=== PATIENT | male | born 1955 | race Two or more races ===

== ENCOUNTER 2024-08-16 15:18 | Inpatient (IN) | payer OTHER ==
[~2024-08-16] VITALS: Ht 182.9 cm; Wt 93.0 kg
[2024-08-16] MEDS ORDERED: NEURONTIN300 MG PO (16:52)
[2024-08-16] MEDS ORDERED: ELIQUIS5 M1 PO (16:52)
[2024-08-16] MEDS ORDERED: HUMALOG100 UNIT/2 (16:52)
[2024-08-16] MEDS ORDERED: LIPITOR40 M1 (16:53)
[2024-08-16] MEDS ORDERED: LOMOTIL (16:53)
[2024-08-16] MEDS ORDERED: NIFEDIPINE20 MG (16:53)
[2024-08-16] MEDS ORDERED: TOPROL XL50 M1 PO (16:54)
[2024-08-16] MEDS ORDERED: IBERSARTAN (16:54)
--- NOTE | 2024-08-16 17:03 | NUR ---
PACIENTE ALERTA Y ORIENTADO X3, QUIEN REFIERE VNEIR POR DOLOR ABDOMINAL Y ESPALDA BAJA. REFIERE QUE DESDE HACE DOS SEMANAS ESTAR [place] POR EL AREA RECTAL Y HERNANDEZ COLOSTOMIA ESTAR INFLAMADA. HERNANDEZ CIRUJANA UDAY STEPHENS, Y ONCOLOGO ES MELCHOR BLAKE.
[2024-08-16] MEDS ORDERED: FAMOTIDINE/PF 20 MG/2 ML VIAL IV ONE (17:30)
[2024-08-16] MEDS ORDERED: 0.9 % SODIUM CHLORIDE 1,000 ML IV ONE (17:30)
[2024-08-16] MEDS ORDERED: ONDANSETRON HCL 2 MG/ML VIAL IV ONE (17:45)
[2024-08-16] MEDS ORDERED: BARIUM SULFATE 450 ML ORAL.SUSP PO ONE (17:45)
[2024-08-16 18:43] LABS: BASO % 0.6 % (0.1-1.2); EOS # 0.02 (0.04-0.54); EOS % 0.2 % (0.7-7.0); LYMPH # 0.92 (1.18-3.74); LYMPH % 9.7 % (19.3-53.1); MEAN PLATELET VOLUME 9.80 fl (9.4-12.4); MONO # 0.71 (0.24-0.82); MONO % 7.5 % (4.7-12.5); NEUT # 7.69 (1.56-6.13); NEUT % 81.3 % (34.0-71.1); RED CELL DISTRIBUTION WIDTH 15.8 % (11.6-14.4)
[2024-08-16 18:57] LABS: INR 1.03
[2024-08-16 19:01] LABS: ALT/SGPT 30.0 U/L (12-78); AST/SGOT 17.0 U/L (15-37); BILIRUBIN TOTAL 0.47 mg/dL (0.3-1.2); BUN CREA RATIO 18.0 (7.0-25.0); CREATININE SERUM 1.79 mg/dL (0.70-1.30); GFR 37.84; GLOBULINA 4.9 G/DL (2.4-3.5); OSMOLALITY SERUM 294.0 MOSM/KG (275-295); URINE APPEARANCE Clear; URINE BILIRRUBIN Negative (NEGATIVE); URINE BLOOD Negative; URINE COLOR Yellow; URINE KETONE Negative (NEGATIVE); URINE LEUKOCYTE Negative; URINE NITRATE Negative; URINE PROTEIN 30 (NEGATIVE); URINE UROBILINOGEN 0.2 E.U./dl
[2024-08-16 19:05] LABS: URINE BACTERIA 34.7 uL (0.0-1933); URINE CAST 6.45 uL (0.0-1.40); URINE EPITHELIAL CELLS 11.9 uL (0.0-38.8); URINE WBC 2.4 uL (0.0-23.2)
[2024-08-16 19:09] LABS: GLUCOSE FASTING 267.0 mg/dL (65-100)
[2024-08-16 19:25] LABS: URINE GLUCOSE >=1000 MG/DL (NEGATIVE); URINE RBC 0.2 uL (0.0-20.8)
[2024-08-17] MEDS ORDERED: PIPERACILLIN/TAZOBACTAM SODIUM 2.25 GM in DEXTROSE 5 % IN WATER 50 ML IV SCH (00:13)
[2024-08-17] MEDS ORDERED: 0.9 % SODIUM CHLORIDE 1,000 ML IV SCH (00:15)
[2024-08-17] MEDS ORDERED: INSULIN LISPRO 1,000 UNIT/10 ML UNITS SUBCUTANEO PRN (00:15)
[2024-08-17] MEDS ORDERED: DEXTROSE 50 % IN WATER 0.5 G/ML DISP.SYRIN IV PRN (00:15)
[2024-08-17] MEDS ORDERED: MORPHINE SULFATE 4 MG/ML CARTRIDGE IV PRN (00:15)
[2024-08-17] MEDS ORDERED: ACETAMINOPHEN 500 MG GEL..CAP PO PRN (00:15)
[2024-08-17 04:32] VITALS: BP 110/70
[2024-08-17 08:10] VITALS: BP 144/67; O2SAT 96
[2024-08-17] MEDS ORDERED: METOPROLOL SUCCINATE 50 MG TAB.SR.24H PO SCH (09:00)
[2024-08-17] MEDS ORDERED: APIXABAN 5 MG TABLET PO SCH (09:00)
[2024-08-17] MEDS ORDERED: NIFEDIPINE 60 MG TAB.SA.OSM PO SCH (09:00)
[2024-08-17] MEDS ORDERED: MEROPENEM 500 MG/VIAL VIAL IV SCH (10:00)
[2024-08-17 12:04] LABS: BUN CREA RATIO 19.0 (7.0-25.0); CREATININE SERUM 2.0 mg/dL (0.70-1.30); GFR 33.29; OSMOLALITY SERUM 298.0 MOSM/KG (275-295)
[2024-08-17 12:05] LABS: GLUCOSE FASTING 309.0 mg/dL (65-100)
[2024-08-17] MEDS ORDERED: DEXTROSE 50 % IN WATER 0.5 G/ML VIAL IV PRN (14:30)
[2024-08-17] MEDS ORDERED: BUPIVACAINE HCL/PF 0.25% 30ML VIAL InF ONE (17:45)
[2024-08-17] MEDS ORDERED: LIDOCAINE HCL 1% 20 ML VIAL IJ ONE (17:45)
[2024-08-17] MEDS ORDERED: ONDANSETRON HCL 2 MG/ML VIAL IV PRN (18:15)
[2024-08-17 20:20] LABS: BUN CREA RATIO 22.0 (7.0-25.0); CREATININE SERUM 1.86 mg/dL (0.70-1.30); GFR 36.2; OSMOLALITY SERUM 303.0 MOSM/KG (275-295)
[2024-08-17 20:34] LABS: GLUCOSE FASTING 281.0 mg/dL (65-100)
[2024-08-17] MEDS ORDERED: FAMOTIDINE/PF 20 MG/2 ML VIAL IV SCH (21:00)
[2024-08-17] MEDS ORDERED: ENOXAPARIN SODIUM 100 MG/ML SYRINGE SUBCUTANEO SCH (21:00)
[2024-08-18] MEDS ORDERED: MORPHINE SULFATE 4 MG/ML VIAL IV ONE (04:00)
[2024-08-18] MEDS ORDERED: ENALAPRILAT DIHYDRATE 1.25 MG/ML VIAL IV ONE (04:30)
[2024-08-18 06:43] LABS: BASO % 0.8 % (0.1-1.2); EOS # 0.00 (0.04-0.54); EOS % 0.0 % (0.7-7.0); LYMPH # 0.40 (1.18-3.74); LYMPH % 15.2 % (19.3-53.1); MEAN PLATELET VOLUME 10.60 fl (9.4-12.4); MONO # 0.49 (0.24-0.82); NEUT # 1.71 (1.56-6.13); NEUT % 65.0 % (34.0-71.1); RED CELL DISTRIBUTION WIDTH 15.8 % (11.6-14.4)
[2024-08-18 06:49] LABS: MONO % 18.6 % (4.7-12.5)
[2024-08-18] MEDS ORDERED: ENALAPRILAT DIHYDRATE 1.25 MG/ML VIAL IV STA (06:56)
[2024-08-18] MEDS ORDERED: ENALAPRILAT DIHYDRATE 1.25 MG/ML VIAL IV PRN (07:00)
[2024-08-18 07:07] LABS: ALT/SGPT 24.0 U/L (12-78); AST/SGOT 15.0 U/L (15-37); BILIRUBIN TOTAL 0.51 mg/dL (0.3-1.2); BUN CREA RATIO 20.0 (7.0-25.0); CREATININE SERUM 1.66 mg/dL (0.70-1.30); GFR 41.28; GLOBULINA 3.8 G/DL (2.4-3.5); OSMOLALITY SERUM 304.0 MOSM/KG (275-295)
[2024-08-18 07:10] LABS: GLUCOSE FASTING 299.0 mg/dL (65-100)
[2024-08-18 14:23] VITALS: BP 98/62; O2SAT 88
[2024-08-18 15:00] VITALS: O2SAT 97
[2024-08-18] MEDS ORDERED: ENOXAPARIN SODIUM 40 MG/0.4 ML SYRINGE SUBCUTANEO SCH (17:00)
[2024-08-18 18:44] VITALS: BP 110/70; O2SAT 96
[2024-08-19 01:00] VITALS: BP 145/82
[2024-08-19 09:22] VITALS: BP 162/98; O2SAT 93
[2024-08-19 18:15] VITALS: BP 167/95; O2SAT 100
[2024-08-19] MEDS ORDERED: ENOXAPARIN SODIUM 100 MG/ML SYRINGE SUBCUTANEO SCH (21:00)
[2024-08-20 01:29] VITALS: BP 146/84
[2024-08-20 08:00] VITALS: BP 198/82; O2SAT 93
[2024-08-20] MEDS ORDERED: MORPHINE SULFATE 4 MG/ML CARTRIDGE IV PRN (16:30)
[2024-08-20 16:43] VITALS: BP 180/108; O2SAT 93
[2024-08-20] MEDS ORDERED: IRBESARTAN 300 MG TABLET PO SCH (17:00)
[2024-08-21 03:26] VITALS: BP 162/108; O2SAT 91
[2024-08-21 08:54] LABS: ALT/SGPT 17.0 U/L (12-78); AST/SGOT 14.0 U/L (15-37); BILIRUBIN TOTAL 0.49 mg/dL (0.3-1.2); BUN CREA RATIO 20.0 (7.0-25.0); CREATININE SERUM 1.08 mg/dL (0.70-1.30); GFR 67.79; GLOBULINA 4.0 G/DL (2.4-3.5); GLUCOSE FASTING 291.0 mg/dL (65-100); OSMOLALITY SERUM 297.0 MOSM/KG (275-295)
[2024-08-21 10:15] VITALS: BP 169/100
[2024-08-21 12:13] LABS: BASO % 0.6 % (0.1-1.2); EOS # 0.01 (0.04-0.54); EOS % 0.2 % (0.7-7.0); LYMPH # 0.92 (1.18-3.74); LYMPH % 17.1 % (19.3-53.1); MEAN PLATELET VOLUME 11.50 fl (9.4-12.4); MONO # 1.01 (0.24-0.82); NEUT # 3.33 (1.56-6.13); NEUT % 61.8 % (34.0-71.1); RED CELL DISTRIBUTION WIDTH 15.8 % (11.6-14.4)
[2024-08-21 12:17] LABS: MONO % 18.8 % (4.7-12.5)
[2024-08-21] MEDS ORDERED: NIFEDIPINE 60 MG TAB.SA.OSM PO SCH (17:00)
[2024-08-21] MEDS ORDERED: TAMSULOSIN HCL 0.4 MG CAP PO STA (17:42)
[2024-08-21 18:55] VITALS: BP 162/89
[2024-08-21 20:34] VITALS: BP 144/90
[2024-08-22 02:50] VITALS: BP 128/86; O2SAT 90
[2024-08-22 08:58] VITALS: BP 128/73
[2024-08-22] MEDS ORDERED: TAMSULOSIN HCL 0.4 MG CAP PO SCH (09:00)
[2024-08-22 17:37] VITALS: BP 150/70
[2024-08-22] MEDS ORDERED: ENOXAPARIN SODIUM 100 MG/ML SYRINGE SUBCUTANEO SCH (21:00)
[2024-08-23 02:27] VITALS: BP 118/79; O2SAT 90
[2024-08-23 06:34] LABS: BASO % 0.8 % (0.1-1.2); EOS # 0.03 (0.04-0.54); EOS % 0.6 % (0.7-7.0); LYMPH # 1.11 (1.18-3.74); LYMPH % 20.9 % (19.3-53.1); MEAN PLATELET VOLUME 11.20 fl (9.4-12.4); MONO # 0.92 (0.24-0.82); NEUT # 2.99 (1.56-6.13); NEUT % 56.3 % (34.0-71.1); RED CELL DISTRIBUTION WIDTH 15.9 % (11.6-14.4)
[2024-08-23 07:35] LABS: BAND MAN 3.0 %; LYMPHOCYTE MAN 35.0 %; MONO % 17.4 % (4.7-12.5); MONOCYTE MAN 7.0 %; NEUTROPHILS MAN 50.0 %
[2024-08-23 08:30] VITALS: BP 110/74; O2SAT 98
[2024-08-23] MEDS ORDERED: DIATRIZOATE MEGLUMINE, SODIUM 30 ML BOTTLE PO STA (12:33)
[2024-08-23] MEDS ORDERED: ONDANSETRON HCL 2 MG/ML VIAL IV PRN (14:30)
[2024-08-23] MEDS ORDERED: FAMOTIDINE/PF 20 MG/2 ML VIAL IV PUSH SCH (14:45)
[2024-08-23 17:55] VITALS: BP 158/94
[2024-08-23] MEDS ORDERED: ENOXAPARIN SODIUM 60 MG/0.6 ML SYRINGE SUBCUTANEO SCH (21:00)
[2024-08-24 02:05] VITALS: BP 121/60; O2SAT 96
[2024-08-24] MEDS ORDERED: PROMETHAZINE HCL 25 MG/ML AMPUL IV PRN (03:15)
[2024-08-24] MEDS ORDERED: FAMOTIDINE/PF 20 MG/2 ML VIAL IV PUSH SCH (05:00)
[2024-08-24 07:48] VITALS: BP 123/71
[2024-08-24] MEDS ORDERED: DEXTROSE 5 %-0.45 % SOD CHLORD 1,000 ML IV SCH (11:15)
[2024-08-24 15:30] LABS: BUN CREA RATIO 24.0 (7.0-25.0); CHOL HDL RATIO 4.8 (0-5.0); CREATININE SERUM 1.7 mg/dL (0.70-1.30); GFR 40.16; HDL 45.0 mg/dl (40-60); LDL 130.0 mg/dl (0-130); OSMOLALITY SERUM 299.0 MOSM/KG (275-295); VLDL 38.0 (0-39)
[2024-08-24 15:45] LABS: GLUCOSE FASTING 211.0 mg/dL (65-100)
[2024-08-24] MEDS ORDERED: AA 4.25%/CAL/LYTES/DEXT 5% 1,000 ML PERIFERAL SCH (17:00)
[2024-08-24 19:02] VITALS: BP 117/76; O2SAT 97
[2024-08-24 19:04] VITALS: BP 121/78; O2SAT 98
[2024-08-25 01:27] VITALS: BP 118/71; O2SAT 95
[2024-08-25 06:58] LABS: BUN CREA RATIO 27.0 (7.0-25.0); CREATININE SERUM 1.24 mg/dL (0.70-1.30); GFR 57.8; GLUCOSE FASTING 233.0 mg/dL (65-100); OSMOLALITY SERUM 300.0 MOSM/KG (275-295)
[2024-08-25 09:31] VITALS: BP 132/86
[2024-08-25 15:12] LABS: BASO % 0.7 % (0.1-1.2); EOS # 0.03 (0.04-0.54); EOS % 0.4 % (0.7-7.0); LYMPH # 1.04 (1.18-3.74); LYMPH % 14.4 % (19.3-53.1); MEAN PLATELET VOLUME 10.40 fl (9.4-12.4); MONO # 0.78 (0.24-0.82); MONO % 10.8 % (4.7-12.5); NEUT # 5.00 (1.56-6.13); NEUT % 69.4 % (34.0-71.1); RED CELL DISTRIBUTION WIDTH 16.4 % (11.6-14.4)
[2024-08-25 17:50] VITALS: BP 138/88; O2SAT 97
[2024-08-26 02:12] VITALS: BP 134/87; O2SAT 96
[2024-08-26 10:32] VITALS: BP 140/97; O2SAT 99
[2024-08-26] MEDS ORDERED: ENOXAPARIN SODIUM 80 MG/0.8 ML SYRINGE SUBCUTANEO SCH (11:48)
[2024-08-26 17:02] VITALS: BP 132/87; O2SAT 99
[2024-08-27 02:05] VITALS: BP 134/87; O2SAT 96
[2024-08-27 09:05] VITALS: BP 122/64; O2SAT 98
[2024-08-27 14:22] LABS: BASO % 0.8 % (0.1-1.2); EOS # 0.07 (0.04-0.54); EOS % 0.8 % (0.7-7.0); LYMPH # 1.11 (1.18-3.74); LYMPH % 12.8 % (19.3-53.1); MEAN PLATELET VOLUME 10.60 fl (9.4-12.4); MONO # 0.55 (0.24-0.82); MONO % 6.4 % (4.7-12.5); NEUT # 6.54 (1.56-6.13); NEUT % 75.5 % (34.0-71.1); RED CELL DISTRIBUTION WIDTH 16.0 % (11.6-14.4)
[2024-08-27 15:09] LABS: BAND MAN 1.0 %; EOSINOPHIL MAN 1.0 %; LYMPHOCYTE MAN 14.0 %; METAMYELOCYTE 2.0 %; MONOCYTE MAN 7.0 %; NEUTROPHILS MAN 75.0 %
[2024-08-27 17:32] VITALS: BP 157/100; O2SAT 98
[2024-08-28 02:35] VITALS: BP 125/77; O2SAT 95
[2024-08-28] MEDS ORDERED: TAMS0.4C PO (09:12)
[2024-08-28] MEDS ORDERED: AVAPRO300 MG PO (09:13)
[2024-08-28] MEDS ORDERED: TOPROL XL50 M1 PO (09:13)
[2024-08-28 09:42] LABS: ALT/SGPT 15.0 U/L (12-78); AST/SGOT 18.0 U/L (15-37); BILIRUBIN TOTAL 0.38 mg/dL (0.3-1.2); BUN CREA RATIO 20.0 (7.0-25.0); CREATININE SERUM 0.84 mg/dL (0.70-1.30); GFR 90.6; GLOBULINA 3.7 G/DL (2.4-3.5); GLUCOSE FASTING 146.0 mg/dL (65-100); OSMOLALITY SERUM 285.0 MOSM/KG (275-295)
[2024-08-28 09:44] VITALS: BP 128/78
[2024-08-28 10:00] LABS: BASO % 0.5 % (0.1-1.2); EOS # 0.15 (0.04-0.54); EOS % 1.6 % (0.7-7.0); LYMPH # 1.39 (1.18-3.74); LYMPH % 14.6 % (19.3-53.1); MEAN PLATELET VOLUME 10.90 fl (9.4-12.4); MONO # 0.80 (0.24-0.82); MONO % 8.4 % (4.7-12.5); NEUT # 6.73 (1.56-6.13); NEUT % 71.0 % (34.0-71.1); RED CELL DISTRIBUTION WIDTH 16.0 % (11.6-14.4)
== END 2024-08-28 12:10 | disposition home or self-care (01) | DRG 335 ==
LOC: ER 15:18 → O/R 08-17 00:15 → SEC-K 08-17 00:15 → SURH 08-17 10:29 → SEC-K 08-17 12:31 → O/R 08-17 14:11 → MEDJ 08-18 10:06
PROVIDERS: Colon & Rectal Surgery; Emergency Medicine Pediatric Emergency Medicine; General Practice; Internal Medicine; ADMIT Internal Medicine; ATTEND Internal Medicine
PROC: BW21ZZZ Computerized Tomography (CT Scan) of Abdomen and Pelvis (ICD-10-PCS; 2024-08-16)
PROC: 0WQF4ZZ Repair Abdominal Wall, Percutaneous Endoscopic Approach (ICD-10-PCS; 2024-08-17)
PROC: 0DN84ZZ Release Small Intestine, Percutaneous Endoscopic Approach (ICD-10-PCS; principal; 2024-08-17 19:00)
PROC: B54DZZZ Ultrasonography of Bilateral Lower Extremity Veins (ICD-10-PCS; 2024-08-22)
PROC: BW21ZZZ Computerized Tomography (CT Scan) of Abdomen and Pelvis (ICD-10-PCS; 2024-08-23)
PROC: BW21ZZZ Computerized Tomography (CT Scan) of Abdomen and Pelvis (ICD-10-PCS; 2024-08-25)
DX: K56.609 Unspecified intestinal obstruction, unspecified as to partial versus complete obstruction (principal); I26.99 Other pulmonary embolism without acute cor pulmonale; C20 Malignant neoplasm of rectum; N17.9 Acute kidney failure, unspecified; I10 Essential (primary) hypertension; E11.9 Type 2 diabetes mellitus without complications; Z79.4 Long term (current) use of insulin; E78.5 Hyperlipidemia, unspecified

== ENCOUNTER 2024-09-20 20:39 | Inpatient (IN) | payer OTHER ==
[~2024-09-20] VITALS: Ht 157.5 cm; Wt 93.0 kg
[~2024-09-20 20:39] MED LIST: AVAPRO300 MG PO; ELIQUIS5 M1 PO; HUMALOG100 UNIT/2; IBERSARTAN; LIPITOR40 M1; LOMOTIL; NEURONTIN300 MG PO; NIFEDIPINE20 MG; TAMS0.4C PO; TOPROL XL50 M1 PO
[2024-09-20] MEDS ORDERED: 0.9 % SODIUM CHLORIDE 1,000 ML IV SCH (21:45)
[2024-09-20 22:12] LABS: BASO % 0.5 % (0.1-1.2); EOS # 0.01 (0.04-0.54); EOS % 0.1 % (0.7-7.0); LYMPH # 1.09 (1.18-3.74); LYMPH % 12.5 % (19.3-53.1); MEAN PLATELET VOLUME 9.90 fl (9.4-12.4); MONO # 0.44 (0.24-0.82); MONO % 5.0 % (4.7-12.5); NEUT # 7.00 (1.56-6.13); NEUT % 80.3 % (34.0-71.1); RED CELL DISTRIBUTION WIDTH 15.9 % (11.6-14.4)
[2024-09-20] MEDS ORDERED: INSULIN REGULAR, HUMAN 1,000 UNIT/10 ML UNITS IV STA (22:22)
[2024-09-20 22:33] LABS: ALT/SGPT 23.0 U/L (12-78); AST/SGOT 11.0 U/L (15-37); BILIRUBIN TOTAL 0.5 mg/dL (0.3-1.2); BILIRUBIN,CONJUGATED 0.14 mg/dL (0.0-0.2); BUN CREA RATIO 19.0 (7.0-25.0); CREATININE SERUM 2.11 mg/dL (0.70-1.30); GFR 31.3; GLOBULINA 5.5 G/DL (2.4-3.5); OSMOLALITY SERUM 286.0 MOSM/KG (275-295)
[2024-09-20 22:43] LABS: GLUCOSE FASTING 411.0 mg/dL (65-100)
[2024-09-20 23:24] LABS: URINE APPEARANCE Clear; URINE BILIRRUBIN Negative (NEGATIVE); URINE BLOOD Negative; URINE COLOR Yellow; URINE KETONE Negative (NEGATIVE); URINE LEUKOCYTE Negative; URINE NITRATE Negative; URINE PROTEIN Trace (NEGATIVE); URINE UROBILINOGEN 0.2 E.U./dl
[2024-09-20 23:28] LABS: URINE BACTERIA 472.7 uL (0.0-1933); URINE CAST 4.25 uL (0.0-1.40); URINE EPITHELIAL CELLS 9.6 uL (0.0-38.8)
[2024-09-20 23:49] LABS: URINE GLUCOSE >=1000 MG/DL (NEGATIVE); URINE MUCUS NEGATIVE; URINE RBC 0.2 uL (0.0-20.8); URINE WBC 1.3 uL (0.0-23.2)
[2024-09-21] MEDS ORDERED: INSULIN LISPRO 1,000 UNIT/10 ML UNITS SUBCUTANEO PRN ×2 (09:45→17:15)
[2024-09-21] MEDS ORDERED: INSULIN REGULAR, HUMAN 1,000 UNIT/10 ML UNITS SUBCUTANEO ONE (09:45)
[2024-09-21 16:00] VITALS: BP 136/86; O2SAT 98
[2024-09-21] MEDS ORDERED: 0.9 % SODIUM CHLORIDE 1,000 ML IV SCH (17:00)
[2024-09-21] MEDS ORDERED: DEXTROSE 50 % IN WATER 0.5 G/ML DISP.SYRIN IV PRN (17:15)
[2024-09-21] MEDS ORDERED: VITAMIN B COMPLEX/LYSINE 15 ML BLIST.PACK PO SCH (17:20)
[2024-09-21] MEDS ORDERED: FAMOTIDINE/PF 20 MG/2 ML VIAL IV SCH (17:25)
[2024-09-21] MEDS ORDERED: ENOXAPARIN SODIUM 80 MG/0.8 ML SYRINGE SUBCUTANEO SCH (17:25)
[2024-09-21] MEDS ORDERED: CEFTRIAXONE SODIUM 1,000 MG VIAL IV SCH (17:27)
[2024-09-21] MEDS ORDERED: hydrALAZINE HCL 20 MG VIAL IV PRN (17:30)
[2024-09-21] MEDS ORDERED: INSULIN LISPRO 1,000 UNIT/10 ML UNITS SUBCUTANEO ONE (18:10)
[2024-09-21] MEDS ORDERED: CEFTRIAXONE SODIUM 1,000 MG VIAL ONE (18:10)
[2024-09-21] MEDS ORDERED: ENOXAPARIN SODIUM 80 MG/0.8 ML SYRINGE SUBCUTANEO ONE (18:10)
[2024-09-21] MEDS ORDERED: FAMOTIDINE/PF 20 MG/2 ML VIAL ONE (18:11)
[2024-09-21 18:34] LABS: INR 1.12
[2024-09-21 18:40] LABS: BUN CREA RATIO 23.0 (7.0-25.0); CREATININE SERUM 1.43 mg/dL (0.70-1.30); GFR 49.03; OSMOLALITY SERUM 291.0 MOSM/KG (275-295)
[2024-09-21 18:48] LABS: GLUCOSE FASTING 409.0 mg/dL (65-100)
[2024-09-22 02:13] VITALS: BP 130/79
[2024-09-22] MEDS ORDERED: VITAMIN B COMPLEX/LYSINE 15 ML BLIST.PACK PO SCH (09:00)
[2024-09-22 09:11] VITALS: BP 157/71; O2SAT 97
[2024-09-22] MEDS ORDERED: METOPROLOL SUCCINATE 50 MG TAB.SR.24H PO SCH (09:28)
[2024-09-22] MEDS ORDERED: INSULIN GLARGINE,HUM.REC.ANLOG 1,000 UNITS/10 ML UNITS SUBCUTANEO SCH (09:29)
[2024-09-22 16:11] VITALS: BP 156/83
[2024-09-23 01:02] VITALS: BP 134/88; O2SAT 99
[2024-09-23] MEDS ORDERED: INSULIN LISPRO 1,000 UNIT/10 ML UNITS SUBCUTANEO SCH (08:00)
[2024-09-23 08:17] VITALS: BP 151/90
[2024-09-23] MEDS ORDERED: INSULIN GLARGINE,HUM.REC.ANLOG 1,000 UNITS/10 ML UNITS SUBCUTANEO SCH (09:00)
== END 2024-09-23 12:44 | disposition home or self-care (01) | DRG 683 ==
LOC: ER 20:39 → SEC-K 09-21 16:53 → MEDI 09-21 16:53
PROVIDERS: General Practice; ADMIT Internal Medicine; ATTEND Internal Medicine
DX: N17.9 Acute kidney failure, unspecified (principal); C18.9 Malignant neoplasm of colon, unspecified; C78.02 Secondary malignant neoplasm of left lung; C78.01 Secondary malignant neoplasm of right lung; C78.7 Secondary malignant neoplasm of liver and intrahepatic bile duct; E86.0 Dehydration; E11.65 Type 2 diabetes mellitus with hyperglycemia; R53.1 Weakness; I12.9 Hypertensive chronic kidney disease with stage 1 through stage 4 chronic kidney disease, or unspecified chronic kidney disease; N18.9 Chronic kidney disease, unspecified; Z88.1 Allergy status to other antibiotic agents; Z91.040 Latex allergy status; Z79.4 Long term (current) use of insulin